=== PATIENT | male | born 1960 | race Hispanic/Latino ===

== ENCOUNTER 2017-12-23 14:46 | Inpatient (IN) | payer OTHER ==
[2017-12-23 16:33] LABS: BASO % 0.5 % (0.0-2.0); EOS % 0.2 % (0.0-4.0); HEMOGLOBIN 15.6 g/dL (12.0-18.0); LYMPH % 26.5 % (20.0-40.0); MEAN CELL VOLUME 88.3 fL (80.0-94.0); MEAN CORPUSCULAR HEMOGLOBIN 29.8 pg (27.0-31.0); MEAN CORPUSCULAR HGB CONC 33.7 g/dL (33.0-37.0); MEAN PLATELET VOLUME 6.7 fL (7.2-11.7); MONO # 0.7 K/uL (0.0-0.8); MONO % 8.9 % (0.0-10.0); NEUT # 4.9 K/uL (1.8-7.0); NEUT % 63.9 % (50.0-75.0); NRBC % 0.1 % (0.0-2.0); RBC 5.25 Mil/uL (4.40-5.90); RED CELL DISTRIBUTION WIDTH 14.7 % (11.5-14.5); WHITE BLOOD COUNT 7.6 K/uL (4.8-10.8)
[2017-12-23 16:50] LABS: ALB/GLOB RATIO 1.6 (1.0-2.1); ALBUMIN 4.8 g/dL (3.5-5.0); ALT/SGPT 51 U/L (21-72); AST/SGOT 58 U/L (17-59); BLOOD UREA NITROGEN 11 mg/dL (9-20); CALCIUM 8.6 mg/dl (8.6-10.4); GFR AFRICAN-AMERICAN > 60; GFR NON-AFRICAN AMERICAN > 60
[2017-12-23 17:16] LABS: URINE BACTERIA OCC (<OCC); URINE BILIRUBIN NEGATIVE (NEGATIVE); URINE CLARITY Clear (Clear); URINE COLOR Straw (YELLOW); URINE GLUCOSE (UA) NORMAL (Normal); URINE LEUKOCYTE ESTERASE NEG Leu/uL (Negative); URINE PROTEIN 2+ mg/dL (NEGATIVE); URINE UROBILINOGEN NORMAL mg/dL (0.2-1.0)
[2017-12-23 17:18] LABS: URINE BLOOD TRACE (NEGATIVE)
[2017-12-23 17:27] LABS: BARBITURATES, UR NEGATIVE (NEGATIVE); BENZODIAZEPINES, UR NEGATIVE (NEGATIVE); OPIATES, UR NEGATIVE (NEGATIVE); PHENCYCLIDINE, UR NEGATIVE (NEGATIVE)
--- NOTE | 2017-12-23 17:58 | C.PDOC ---
History Of Present Illness 57 y/o male presents to the ER requesting detox from alcohol. Patient states that he last drank [employer]. Patient denies having suicidal ideation ,homicidal ideation, and active physical complaints. Time Seen by Provider: 12/23/17 15:32 Chief Complaint (Nursing): Substance Abuse History Per: Patient History/Exam Limitations: no limitations Past Medical History Reviewed: Historical Data, Nursing Documentation, Vital Signs Vital Signs: Last Vital Signs Temp 98 F 12/23/17 15:01 Pulse 66 12/23/17 15:01 Resp 16 12/23/17 15:01 BP 136/66 12/23/17 15:01 Pulse Ox 98 12/23/17 18:31 - Medical History PMH: Depression, HTN Denies: Diabetes, Hepatitis, HIV, Seizures, Sexually Transmitted Disease Surgical History: No Surg Hx - [facility] Procedures ALCOHOL DETOXIFICATION (05/25/13) Family History: States: No Known Family Hx - Social History Hx Tobacco Use: Yes Hx Alcohol Use: Yes Hx Substance Use: No - Immunization History Hx Tetanus Toxoid Vaccination: No Hx Influenza Vaccination: Yes Hx Pneumococcal Vaccination: No Review Of Systems Except As Marked, All Systems Reviewed And Found Negative. Physical Exam - Physical Exam Appears: No Acute Distress Skin: Normal Color, Warm, Dry Head: Atraumatic, Normacephalic Eye(s): bilateral: Normal Inspection Nose: Normal Oral Mucosa: Moist Neck: Supple Chest: Symmetrical Cardiovascular: Rhythm Regular Respiratory: Normal Breath Sounds, No Rales, No Rhonchi, No Wheezing Gastrointestinal/Abdominal: Normal Exam, Soft, No Tenderness, No Guarding, No Rebound Neurological/Psych: Oriented x3, Normal Speech ED Course And Treatment - Laboratory Results Result Diagrams: 12/23/17 16:26 12/23/17 16:26 O2 Sat by Pulse Oximetry: 98 (RA) Pulse Ox Interpretation: Normal Medical Decision Making Medical Decision Making: Assessment: Alcohol Abuse Plan: --Labs --UA --Librium PO Updates: Patient has been medically cleared for Crisis. Patient has been admitted under the service of for alcohol abuse. Disposition Discussed With : Pastor Ndiaye Doctor Will See Patient In The: Hospital Counseled Patient/Family Regarding: Studies Performed, Diagnosis - Disposition Disposition: HOSPITALIZED Disposition Time: 17:58 Condition: FAIR - Clinical Impression Clinical Impression: Alcohol abuse - Scribe Statement The provider has reviewed the documentation as recorded by the Caydenibjcai Melendez Provider Attestation: All medical record entries made by the Caydenibe were at my direction and personally dictated by me. I have reviewed the chart and agree that the record accurately reflects my personal performance of the history, physical exam, medical decision making, and the department course for this patient. I have also personally directed, reviewed, and agree with the discharge instructions and disposition.
--- NOTE | 2017-12-23 18:25 | PCM.BM ---
<Daljit Saleem - Last Filed: 12/23/17 18:24> Treatment Plan Problems - Problems identified on initial assessmt potential for alcohol withdrawal Date Initiated: 12/23/17 Time Initiated: 18:24 Status: Active Treatment assets and liabiliti Patient Assests: cognitively intact Patient Liabilities: substance abuse - Milieu Protocol Maintain good personal hygiene: daily Encourage regular showers, daily Remind patient to perform daily oral care, daily Assist patient to perform ADL's Conduct patient checks and document Observation sheet: Q15 minutes Maintain personal safety: every shift Educate patient to report safety concerns to staff, every shift Monitor environment for contraband/sharps Medication safety: Monitor for expected outcome, potential side effects: every shift, Assess barriers to learning: every shift, Assess readiness for medication education: every shift <Sanjeev Pedraza - Last Filed: 12/24/17 18:58> - Diagnosis (1) Alcohol use disorder, severe, dependence Status: Acute Interventions: 12/24/17 18:58 * Assess 7x/week regarding severity of withdrawal * Educate regarding risks, benefits, side effects and alternatives of medications * Use Motivational Interviewing for abstinence * Use CBT for relapse prevention * Medication management for withdrawal symptoms * Encourage medication assisted treatment
[2017-12-24] MEDS: Metoprolol Succinate 50 mg XL Tab PO SCH (09:06)
[2017-12-24] MEDS: Pantoprazole 40 mg EC Tab PO SCH (09:06)
[2017-12-24] MEDS: Multiple Vitamins Tab PO SCH (09:11)
--- NOTE | 2017-12-24 17:59 | PCM.PSYCH ---
Initial Psychiatric Evaluation - Initial Psychiatric Evaluation Type of Admission: Voluntary Legal Status: Capacity Chief Complaint (in patient's own words): I need help for alcohol use. History of Present Illness and Precipitating Events: Patient is a 57 years old, single, employed, male with history of major depressive disorder was admitted due to withdrawing from alcohol. Reported he has history of depression and is getting medications including Lexapro 20 mg, Abilify 15 mg and Klonopin 1-1/2-2 mg daily prescribed by his psychiatrist. Reported compliant with treatment. According to patient because of work load he relapsed on alcohol. He started drinking alcohol at 14 years of age increased gradually. Currently he was drinking 2 pints of vodka daily. Last drink was yesterday. His longest period of abstinence was 10 months, 6 years ago. History of one previous detox and 2 rehabs. Patient also smoke one pack of cigarettes daily. Patient was born in [place] and has 2 years of college. He is working. Never and has no children. He lives with a roommate. Height is 5 feet 8 inches and weight is 196 pounds. Current Medications: Active Medications Generic Name Dose Route Start Last Admin Trade Name Freq PRN Reason Stop Dose Admin Amlodipine Besylate 5 mg 12/24/17 10:00 12/24/17 09:06 Norvasc PO 5 mg DAILY SANTIAGO Administration Chlordiazepoxide 25 mg 12/23/17 20:20 12/24/17 16:18 Librium PO 25 mg Q4H PRN Administration Alcohol Withdrawal Chlordiazepoxide 25 mg 12/24/17 06:30 12/24/17 17:24 Librium PO 12/28/17 06:28 25 mg Q6 SANTIAGO Administration Taper Clonidine HCl 0.1 mg 12/23/17 20:20 12/24/17 16:57 Catapres PO 0.1 mg Q4H PRN Administration Symptoms of alcohol withdrawl Escitalopram Oxalate 20 mg 12/24/17 10:00 12/24/17 09:06 Lexapro PO 20 mg DAILY SANTIAGO Administration Folic Acid 1 mg 12/24/17 10:00 12/24/17 09:11 Folic Acid PO Not Given DAILY SANTIAGO Ibuprofen 600 mg 12/23/17 20:17 Motrin Tab PO Q6H PRN Pain, moderate (4-7) Metoprolol Succinate 50 mg 12/24/17 10:00 12/24/17 09:06 Toprol Xl PO 50 mg DAILY SANTIAGO Administration Multivitamins 1 tab 12/24/17 10:00 12/24/17 09:11 Hexavitamin PO Not Given DAILY SANTIAGO Nicotine 1 patch 12/24/17 12:00 12/24/17 12:18 Nicoderm Cq TD 1 patch DAILY SANTIAGO Administration Pantoprazole Sodium 40 mg 12/24/17 10:00 12/24/17 09:06 Protonix Ec Tab PO 40 mg DAILY SANTIAGO Administration Rosuvastatin Calcium 10 mg 12/23/17 22:00 12/23/17 21:28 Crestor PO 10 mg HS SANTIAGO Administration Thiamine HCl 100 mg 12/24/17 10:00 12/24/17 09:11 Vitamin B1 Tab PO Not Given DAILY SANTIAGO Trazodone HCl 100 mg 12/23/17 22:00 12/23/17 21:28 Desyrel PO 100 mg HS SANTIAGO Administration Past Psychiatric History - Past Psychiatric History Previous Treatment History: Intensive Outpatient History of Abuse: None reported History of ETOH/Drug Use: See HPI History of Family Illness: None reported Pertinent Medical Hx (Current Medical&Sleep Prob, Allergies): Allergies Allergy/AdvReac Type Severity Reaction Status Date / Time No Known Allergies Allergy Verified 12/23/17 15:03 Atorvastatin [Lipitor] 40 mg PO DAILY 12/23/17 Escitalopram [Lexapro] 20 mg PO DAILY 12/23/17 Metoprolol Succinate 50 mg PO DAILY 12/23/17 Pantoprazole [Protonix] 40 mg PO DAILY 12/23/17 amLODIPine [Norvasc] 5 mg PO DAILY 12/23/17 Hypertension Hypercholesterinemia Review of Systems - Psychiatric Psychiatric: As Per HPI, Depression Mental Status Examination - Personal Presentation Personal Presentation: Looks stated age - Affect Affect: Depressed - Motor Activity Motor Activity: Calm - Reliability in Providing Information Reliability in Providing Information: Fair - Speech Speech: Organized - Mood Mood: Depressed - Formal Thought Process Formal Thought Process: No Impairment - Hallucinations/Delusions Hallucinations: Other (None reported) Delusions: Other - Obsessions/Compulsions Obsessions: None Compulsions: None - Cognitive Functions Orientation: Person, Place, Situation, Time Sensorium: Alert Attention/Concentration: Attentive Abstract Thinking: [place] Estimate of Intelligence: Average Judgement: Intact, as evidence by: Insight regarding need for hospitalization Memory: Recent intact, as evidence by: Ability to recall events of the day, Remote intact, as evidenced by: Ability to recall historical events - Risk Risk: Withdrawal, Diminished functioning - Strength & Assets Inventory Strength & Assets Inventory: Employment status, Cooperative - Limitations Limitations: Other DSM 5 DX - DSM 5 DSM 5 Diagnosis: Alcohol use disorder severe. Major depressive disorder recurrent severe without psychotic features - Recommended/Plan of Treatment Treatment Recommendations and Plan of Treatment: Patient education. Supportive therapy. CBT for relapse prevention. [place] for abstinence. We will start Librium taper for alcohol withdrawal symptoms. Other when necessary medications. Will continue with Lexapro and Abilify. Patient will the get help from social sciences lecturer's to find a place for follow-up care after discharge from the hospital. Projected ELOS: 4-5 days - Smoking Cessation Smoking Cessation Initiated: Yes
--- NOTE | 2017-12-25 09:29 | PCM.PYCHPN ---
Psychiatric Progress Note - Psychiatric Progress Note Patient seen today, length of contact: 15 minutes Patient Chief Complaint: "I'm nervous" Problems Identified/Issues Discussed: Pt was seen and evaluated. Chart reviewed and nurse inpt received. Pt reported he has some shakes and he is feeling nervous. He had no new complaints. He needs more time to stabilize. He is eating sleeping fine. Pt is compliant with medication and denied s/e. Medication Change: Yes (Librium detox) Medical Record Reviewed: Yes Mental Status Examination - Cognitive Function Orientation: Person, Place, Situation, Time Memory: Intact Attention: WNL Concentration: WNL Association: WNL Fund of Knowledge: [facility] Decription of patient's judgement and insights: improving/improving - Mood Mood: Depressed, Anxious - Affect Affect: Constricted, Depressed - Speech Speech: Appropriate - Formal Thought Process Formal Thought Process: No Impairment Psychotic Thoughts and Behaviors: denied - Suicidal Ideation Suicidal Ideation: No Plan: denied - Homicidal Ideation Homicidal Ideation: No Plan: denied Goal/Treatment Plan - Goal/Treatment Plan Need for Continued Stay: Discharge may exacerbated symptoms Progress Toward Problem(s) and Goals/Treatment Plan: Continue medications Support and psychoeducation daily Attend groups and activities daily After care planning by RADHA Estimated Date of D/C: 12/30/17 - Smoking Cessation Smoking Cessation Initiated: Yes
[2017-12-25] MEDS: Multiple Vitamins Tab PO SCH (10:36)
[2017-12-25] MEDS: Pantoprazole 40 mg EC Tab PO SCH (10:36)
[2017-12-25] MEDS: Metoprolol Succinate 50 mg XL Tab PO SCH (10:37)
[2017-12-26] MEDS: Multiple Vitamins Tab PO SCH (09:53)
[2017-12-26] MEDS: Metoprolol Succinate 50 mg XL Tab PO SCH (09:54)
[2017-12-26] MEDS: Pantoprazole 40 mg EC Tab PO SCH (09:54)
--- NOTE | 2017-12-26 15:30 | PCM.PYCHPN ---
Psychiatric Progress Note - Psychiatric Progress Note Patient seen today, length of contact: 15 minutes Patient Chief Complaint: I'm feeling better. Problems Identified/Issues Discussed: Patient seen, chart reviewed, case discussed with the staff. Issues related to illness and treatment were discussed with the patient and staff. Reported compliant with treatment with no adverse affects. Tolerating treatment very well. Risk and benefits of medications were discussed with the patient patient understood and agreed. Reported feeling better. Calm and cooperative, speech soft with good eye contact. Awake alert oriented 3, denied any delusions, any auditory of visual hallucinations, no suicidal ideations or homicidal ideations at the time of evaluation. Aftercare discussed with the patient. Medical Problems: Hypertension Hypercholesterinemia Diagnostic Results: Reviewed DSM 5 Symptoms Update: Improvement with treatment Medication Change: No Medical Record Reviewed: Yes Mental Status Examination - Cognitive Function Orientation: Person, Place, Situation, Time Memory: Intact Attention: WNL Concentration: WNL Association: [facility] Fund of Knowledge: [facility] Decription of patient's judgement and insights: Fair - Mood Mood: Depressed (Much less than before) - Affect Affect: Other (Appropriate) - Speech Speech: Appropriate - Formal Thought Process Formal Thought Process: No Impairment Psychotic Thoughts and Behaviors: None - Suicidal Ideation Suicidal Ideation: No - Homicidal Ideation Homicidal Ideation: No Goal/Treatment Plan - Goal/Treatment Plan Need for Continued Stay: Remain at risks for inpatient hospitalization, Discharge may exacerbated symptoms, Severe functional impairment Progress Toward Problem(s) and Goals/Treatment Plan: Patient education. Supportive therapy. CBT for relapse prevention. [place] for abstinence. Continue treatment as before. Patient will the get help from older adult social work specialist's to find a place for follow-up care after discharge from the hospital. Estimated Date of D/C: 12/30/17 - Smoking Cessation Smoking Cessation Initiated: Yes
[2017-12-27] MEDS: Multiple Vitamins Tab PO SCH (09:40)
[2017-12-27] MEDS: Pantoprazole 40 mg EC Tab PO SCH (09:40)
[2017-12-27] MEDS: Metoprolol Succinate 50 mg XL Tab PO SCH (09:40)
[2017-12-27 16:50] VITALS: RESP 18
--- NOTE | 2017-12-27 20:03 | PCM.PYCHPN ---
Psychiatric Progress Note - Psychiatric Progress Note Patient seen today, length of contact: 15 minutes Patient Chief Complaint: I'm feeling much better. Problems Identified/Issues Discussed: Patient seen, chart reviewed, case discussed with the staff. Issues related to illness and treatment were discussed with the patient and staff. Reported compliant with treatment with no adverse affects. Tolerating treatment very well. Risk and benefits of medications were discussed with the patient patient understood and agreed. Reported feeling much better. Calm and cooperative, speech soft with good eye contact. Awake alert oriented 3, denied any delusions, any auditory of visual hallucinations, no suicidal ideations or homicidal ideations at the time of evaluation. Aftercare discussed with the patient. Medical Problems: Hypertension Hypercholesterinemia Diagnostic Results: Reviewed DSM 5 Symptoms Update: Much improvement with treatment. Medication Change: No Medical Record Reviewed: Yes Mental Status Examination - Cognitive Function Orientation: Person, Place, Situation, Time Memory: Intact Attention: WNL Concentration: WNL Association: WNL Fund of Knowledge: [facility] Decription of patient's judgement and insights: Fair - Mood Mood: Neutral - Affect Affect: Other (Appropriate) - Speech Speech: Appropriate - Formal Thought Process Formal Thought Process: No Impairment Psychotic Thoughts and Behaviors: None - Suicidal Ideation Suicidal Ideation: No - Homicidal Ideation Homicidal Ideation: No Goal/Treatment Plan - Goal/Treatment Plan Need for Continued Stay: Remain at risks for inpatient hospitalization, Discharge may exacerbated symptoms, Severe functional impairment Progress Toward Problem(s) and Goals/Treatment Plan: Patient education. Supportive therapy. CBT for relapse prevention. [facility] for abstinence. Continue treatment as before. Patient will get help from social services aide's to find a place for follow-up care after discharge from the hospital. Estimated Date of D/C: 12/30/17 - Smoking Cessation Smoking Cessation Initiated: Yes
[2017-12-28 06:14] VITALS: O2SAT 97
[2017-12-28] MEDS: Multiple Vitamins Tab PO SCH (09:48)
[2017-12-28] MEDS: Metoprolol Succinate 50 mg XL Tab PO SCH (09:48)
[2017-12-28] MEDS: Pantoprazole 40 mg EC Tab PO SCH (09:48)
[2017-12-28 10:02] VITALS: TEMP 98.6
[2017-12-28 12:57] VITALS: BP 121/75; PULSE 56
--- NOTE | 2017-12-29 18:54 | PCM.PYCHDC ---
Mental Status Examination - Mental Status Examination Orientation: Person, Place, Situation, Time Memory: Intact Mood: Neutral Affect: Other (Appropriate) Speech: Appropriate Attention: WNL Concentration: WNL Association: WNL Fund of Knowledge: WNL Formal Thought Process: No Impairment Description of patient's judgement and insight: Fair Psychotic Thoughts and Behaviors: None Suicidal Ideation: No Current Homicidal Ideation?: No Discharge Summary - Discharge Note Reason for Hospitalization: Alcohol use disorder severe Major depressive disorder recurrent severe without psychotic features Laboratory Data: Reviewed Consultations:: List each consultation separately and include: 1. Reason for request. 2. Findings. 3. Follow-up Summary of Hospital Course include:: 1. Description of specific treatment plan utilized for patients during their course of treatmen. 2. Summarize the time- course for resolution of acute symptoms and/or regressed behaviors. 3. Describe issues identified and worked on during hospitalization. 4. Describe medication utilized. 5. Describe medical problems identified and treated. 6. Reassessment of suicide risk Summary of Hospital Course: Patient is a 57 years old, single, employed, male with history of major depressive disorder was admitted due to withdrawing from alcohol. Reported he has history of depression and is getting medications including Lexapro 20 mg, Abilify 15 mg and Klonopin 1-1/2-2 mg daily prescribed by his psychiatrist. Reported compliant with treatment. According to patient because of work load he relapsed on alcohol. He started drinking alcohol at 14 years of age increased gradually. Currently he was drinking 2 pints of vodka daily. Last drink was yesterday. His longest period of abstinence was 10 months, 6 years ago. History of one previous detox and 2 rehabs. Patient also smoke one pack of cigarettes daily. Patient was born in [place] and has 2 years of college. He is working. Never and has no children. He lives with a roommate. Height is 5 feet 8 inches and weight is 196 pounds. During his stay in the hospital patient was treated with Librium taper for alcohol withdrawal symptoms. Patient was also started or other when necessary medications. Patient also attended groups and other activities on the unit. With the above treatment patient started feeling better. Today patient was stable and had no withdrawal symptoms. Patient was ready for discharge from the hospital today. At the time of evaluation and discharge, patient was awake alert oriented 3, had no delusions, no auditory or visual hallucinations, no suicidal ideations or homicidal ideations. Patient was discharged in a stable condition. Patient will go to [facility] for follow-up care after discharge from the hospital. - Diagnosis (1) Alcohol use disorder, severe, dependence Status: Acute - Final Diagnosis (DSM 5) Condition upon Discharge: FAIR Disposition: HOME/ ROUTINE Follow-up Treatment Plan: Patient will go to [facility] for follow-up care after discharge from the hospital. - Smoking Cessation Smoking Cessation Medication prescribed: Yes - Antipsychotic Medications Pt discharged on 2 or more routine antipsychotic medications: No
== END 2017-12-28 14:33 | disposition home or self-care (01) | DRG 895 ==
LOC: C.ER 14:46 → C.7D 17:57
PROVIDERS: ADMIT Psychiatry & Neurology Psychiatry; ATTEND Psychiatry & Neurology Psychiatry
PROC: HZ2ZZZZ Detoxification Services for Substance Abuse Treatment (ICD-10-PCS; principal; 2017-12-23)
PROC: HZ59ZZZ Individual Psychotherapy for Substance Abuse Treatment, Supportive (ICD-10-PCS; 2017-12-23)
PROC: GZ3ZZZZ Medication Management (ICD-10-PCS; 2017-12-23)
PROC: HZ90ZZZ Pharmacotherapy for Substance Abuse Treatment, Nicotine Replacement (ICD-10-PCS; 2017-12-23)
PROC: GZ56ZZZ Individual Psychotherapy, Supportive (ICD-10-PCS; 2017-12-23)
PROC: GZHZZZZ Group Psychotherapy (ICD-10-PCS; 2017-12-23)
DX: F10.230 Alcohol dependence with withdrawal, uncomplicated (principal); F33.2 Major depressive disorder, recurrent severe without psychotic features; F17.210 Nicotine dependence, cigarettes, uncomplicated; E78.00 Pure hypercholesterolemia, unspecified; I10 Essential (primary) hypertension

== ENCOUNTER 2018-09-08 13:40 | Inpatient (IN) | payer OTHER ==
[2018-09-08 14:05] VITALS: BMI 30.4
[2018-09-08 16:03] LABS: BASO % 0.7 % (0.0-2.0); EOS # 0.2 K/uL (0.0-0.7); EOS % 3.5 % (0.0-4.0); HEMOGLOBIN 16.4 g/dL (12.0-18.0); LYMPH # 2.3 K/uL (1.0-4.3); LYMPH % 38.5 % (20.0-40.0); MEAN CORPUSCULAR HEMOGLOBIN 31.1 pg (27.0-31.0); MEAN PLATELET VOLUME 6.8 fL (7.2-11.7); MONO # 0.5 K/uL (0.0-0.8); MONO % 8.2 % (0.0-10.0); NEUT # 2.9 K/uL (1.8-7.0); NEUT % 49.1 % (50.0-75.0); NRBC % 0.1 % (0.0-2.0); RBC 5.28 Mil/uL (4.40-5.90); RED CELL DISTRIBUTION WIDTH 13.1 % (11.5-14.5); WHITE BLOOD COUNT 5.9 K/uL (4.8-10.8)
[2018-09-08 16:07] LABS: MEAN CELL VOLUME 91.4 fL (80.0-94.0)
[2018-09-08 16:21] LABS: ALB/GLOB RATIO 1.5 (1.0-2.1); ALBUMIN 4.6 g/dL (3.5-5.0); ALT/SGPT 29 U/L (21-72); AST/SGOT 43 U/L (17-59); BLOOD UREA NITROGEN 10 mg/dL (9-20); CALCIUM 9.2 mg/dl (8.6-10.4); GFR NON-AFRICAN AMERICAN > 60
[2018-09-08 16:24] LABS: URINE BILIRUBIN NEGATIVE (NEGATIVE); URINE BLOOD 1+ (NEGATIVE); URINE CLARITY Clear (Clear); URINE COLOR Yellow (YELLOW); URINE GLUCOSE (UA) NORMAL (Normal); URINE LEUKOCYTE ESTERASE NEG Leu/uL (Negative); URINE PROTEIN 2+ mg/dL (NEGATIVE); URINE UROBILINOGEN NORMAL mg/dL (0.2-1.0)
[2018-09-08 16:29] LABS: BARBITURATES, UR NEGATIVE (NEGATIVE); BENZODIAZEPINES, UR NEGATIVE (NEGATIVE); OPIATES, UR NEGATIVE (NEGATIVE); PHENCYCLIDINE, UR NEGATIVE (NEGATIVE)
--- NOTE | 2018-09-08 16:42 | C.PDOC ---
History Of Present Illness 58 year old male with a history of depression presents to the emergency department with complaints of depression. Patient states that for the last several weeks he has been sleeping more, as well as drinking more. Patient states that his last drink was 15 minutes prior to arrival. Patient is currently requesting detox from alcohol. He denies suicidal and homicidal ideation. Patient's neighbor is at bedside with him. Time Seen by Provider: 09/08/18 14:53 Chief Complaint (Nursing): Substance Abuse History Per: Patient History/Exam Limitations: no limitations Onset/Duration Of Symptoms: Other (several weeks) Current Symptoms Are (Timing): Worse Suicide/Self Injury Attempted (Context): None Modifying Factor(s): Alcohol Associated Symptoms: Depression. denies: Suicidal Thoughts, Suicidal Plan Past Medical History Reviewed: Historical Data, Nursing Documentation, Vital Signs Vital Signs: Last Vital Signs Temp 98.6 F 09/08/18 14:04 Pulse 79 09/08/18 14:04 Resp 18 09/08/18 14:04 BP 144/82 09/08/18 14:04 Pulse Ox 97 09/08/18 14:04 - Medical History PMH: Depression, HTN, Hypercholesterolemia Denies: Diabetes, Hepatitis, HIV, Seizures, Sexually Transmitted Disease Surgical History: Coronary Stent (x2 2007) - [facility] Procedures ALCOHOL DETOXIFICATION (05/25/13) DETOXIFICATION SERVICES FOR SUBSTANCE ABUSE TREATMENT (12/23/17) GROUP PSYCHOTHERAPY (12/23/17) INDIV PSYCHOTHERAPY FOR SUBSTANCE ABUSE TREATMENT, SUPPORT (12/23/17) INDIVIDUAL PSYCHOTHERAPY, SUPPORTIVE (12/23/17) MEDICATION MANAGEMENT (12/23/17) PHARMACOTHERAPY FOR SUBSTANCE ABUSE, NICOTINE REPLACE (12/23/17) Family History: States: No Known Family Hx - Social History Hx Tobacco Use: Yes Hx Alcohol Use: Yes (dialy for the last one month) Hx Substance Use: No (Pt denies) - Immunization History Hx Tetanus Toxoid Vaccination: Yes Hx Influenza Vaccination: No Hx Pneumococcal Vaccination: No Review Of Systems Except As Marked, All Systems Reviewed And Found Negative. Constitutional: Negative for: Fever, Chills Cardiovascular: Negative for: Chest Pain Respiratory: Negative for: Cough, Shortness of Breath Gastrointestinal: Negative for: Nausea, Vomiting, Abdominal Pain, Diarrhea Psych: Positive for: Depression. Negative for: Suicidal ideation Physical Exam - Physical Exam Appears: Non-toxic, No Acute Distress Skin: Normal Color, Warm, Dry Head: Atraumatic, Normacephalic Eye(s): bilateral: Normal Inspection, PERRL, EOMI Nose: Normal Oral Mucosa: Moist, Other (alcohol on breath) Neck: Normal, Supple Chest: Symmetrical, No Tenderness Cardiovascular: Rhythm Regular, No Murmur Respiratory: Normal Breath Sounds, No Rales, No Rhonchi, No Wheezing Gastrointestinal/Abdominal: Soft, No Tenderness, No Guarding, No Rebound Extremity: Normal ROM Neurological/Psych: Oriented x3, Normal Speech, Normal Cognition ED Course And Treatment - Laboratory Results Result Diagrams: 09/08/18 15:49 09/08/18 15:49 Lab Results: Total Bilirubin 0.8 mg/dL (0.2-1.3) 09/08/18 15:49 AST 43 U/L (17-59) 09/08/18 15:49 ALT 29 U/L (21-72) 09/08/18 15:49 Alkaline Phosphatase 84 U/L (38-126) 09/08/18 15:49 Total Protein 7.6 g/dL (6.3-8.3) 09/08/18 15:49 Albumin 4.6 g/dL (3.5-5.0) 09/08/18 15:49 Globulin 3.0 gm/dL (2.2-3.9) 09/08/18 15:49 Albumin/Globulin Ratio 1.5 (1.0-2.1) 09/08/18 15:49 Urine Color Yellow (YELLOW) 09/08/18 15:49 Urine Clarity Clear (Clear) 09/08/18 15:49 Urine pH 6.0 (5.0-8.0) 09/08/18 15:49 Ur Specific Lamar 1.009 (1.003-1.030) 09/08/18 15:49 Urine Protein 2+ mg/dL (NEGATIVE) H 09/08/18 15:49 Urine Glucose (UA) Normal mg/dL (Normal) 09/08/18 15:49 Urine Ketones Negative mg/dL (NEGATIVE) 09/08/18 15:49 Urine Blood 1+ (NEGATIVE) H 09/08/18 15:49 Urine Nitrate Negative (NEGATIVE) 09/08/18 15:49 Urine Bilirubin Negative (NEGATIVE) 09/08/18 15:49 Urine Urobilinogen Normal mg/dL (0.2-1.0) 09/08/18 15:49 Ur Leukocyte Esterase Neg Magdy/uL (Negative) 09/08/18 15:49 Urine WBC (Auto) < 1 /hpf (0-5) 09/08/18 15:49 Urine RBC (Auto) < 1 /hpf (0-3) 09/08/18 15:49 O2 Sat by Pulse Oximetry: 97 (RA) Pulse Ox Interpretation: Normal Progress Note: Plan: Labs. Patient is medically cleared to be evaluated by crisis. Disposition - Disposition Disposition: HOSPITALIZED Disposition Time: 17:03 Condition: STABLE Forms: Pixelle (Albanian) - Clinical Impression Clinical Impression: Alcohol use disorder, severe, dependence - PA / VIBRATION ANALYST / Resident Statement MD/DO has reviewed & agrees with the documentation as recorded. - Scribe Statement The provider has reviewed the documentation as recorded by the Scribe (Hernan Aguirre) All medical record entries made by the Scribe were at my direction and personally dictated by me. I have reviewed the chart and agree that the record accurately reflects my personal performance of the history, physical exam, medical decision making, and the department course for this patient. I have also personally directed, reviewed, and agree with the discharge instructions and disposition. Decision To Admit - Pt Status Changed To: Hospital Disposition Of: Inpatient - Admit Certification Admit to Inpatient:: After my assessment, the patient will require hospitalization for at least two midnights. This is because of the severity of symptoms shown, intensity of services needed, and/or the medical risk in this patient being treated as an outpatient. - InPatient: Physician Admission Certification: I certify that this patient requires 2 or more midnights of care for the following reason:: Patient will need more than 2 days of hospitalization - . Bed Request Type: Detox Admitting Physician: Shelia Boyd Patient Diagnosis: Alcohol use disorder, severe, dependence
--- NOTE | 2018-09-08 19:11 | PCM.BM ---
<NikolaiJennifer - Last Filed: 09/08/18 19:09> Treatment Plan Problems - Problems identified on initial assessmt Anxiety Related to Substance Use Date Initiated: 09/08/18 Time Initiated: 19:10 Assessment reference: NA Status: Active Defensive Coping Date Initiated: 09/08/18 Time Initiated: 19:10 Assessment reference: NA Status: Active Knowledge Deficit : Alcohol Use Date Initiated: 09/08/18 Time Initiated: 19:11 Assessment reference: NA Status: Active Treatment assets and liabiliti Patient Assests: ADL independent, negotiates basic needs, cognitively intact Patient Liabilities: substance abuse - Milieu Protocol Maintain good personal hygiene: daily Encourage regular showers, daily Remind patient to perform daily oral care, daily Assist patient to perform ADL's Conduct patient checks and document Observation sheet: Q15 minutes Maintain personal safety: every shift Educate patient to report safety concerns to staff, every shift Monitor environment for contraband/sharps Medication safety: Monitor for expected outcome, potential side effects: every shift, Assess barriers to learning: every shift, Assess readiness for medication education: every shift <Sanjeev Pedraza - Last Filed: 09/11/18 16:59> - Diagnosis (1) Alcohol use disorder, severe, dependence Status: Acute Interventions: 09/11/18 16:59 * Assess/adjust medications daily and /or as needed * See patient on an individual basis 7x/week to assess symptoms of depression * Monitor for side effects & effectiveness of medications (2) Major depressive disorder, recurrent severe without psychotic features Status: Acute Interventions: 09/11/18 17:00 * Assess 7x/week regarding severity of withdrawal * Educate regarding risks, benefits, side effects and alternatives of medications * Use Motivational Interviewing for abstinence * Use CBT for relapse prevention * Medication management for withdrawal symptoms * Encourage medication assisted treatment <Mami Alvarado - Last Filed: 09/12/18 08:26> Family Contact Family involvement: Famliy/SO not involved - Goals for Treatment Patient goals for treatment: COMPLETE DETOX AND APPLY FOR LONG-TERM INPATIENT REHAB IN [place]. Discharge/Continuing Care - Education Needs Education Needs: Patient Medication, Patient Diagnosis/Disease Process, Patient Coping Skills, Patient Anger Management skills, Patient Placement options, Patient Community resources - Discharge Discharge Criteria: No longer exhibiting s/s of withdrawal, Reduction of target symptoms Discharge to:: Substance Abuse Rehab - Treatment Team Participation Patient/Family/SO Statement: 09/12/18 08:26 "I'M GONNA GO TO REHAB IN [place]..." Discussed with Family/SO: No Was Patient/Family/SO present at Treatment Team Meeting: Yes
[2018-09-09] MEDS: Multiple Vitamins Tab PO SCH (10:29)
--- NOTE | 2018-09-09 19:27 | PCM.PSYCH ---
Initial Psychiatric Evaluation - Initial Psychiatric Evaluation Type of Admission: Voluntary Legal Status: Capacity Chief Complaint (in patient's own words): I need help for my alcohol use. History of Present Illness and Precipitating Events: Patient is a 58 years old, single, employed, male with history of major depressive disorder, currently unemployed with medications for last 7-8 months, was admitted due to withdrawing from alcohol and depression. Alcohol: Started drinking alcohol 15 years ago, increased gradually. Currently he was drinking half bottle of vodka daily. His longest period of abstinence was one and 1/2-year 5 years ago. Patient has history of 3 detox and to rehabs in the past. Reported having shaking and also drinking in the morning to open his eyes. Patient was attending AA meetings in the past. Patient has no sponsor. Patient reported history of depression for last many years, not taking any medication for the last 7-8 months as no medication was helping him. He was seeing a psychiatrist off and on. He was last seen by a psychiatrist 1 year ago. Patient was born in [place], has 3 years of college education. Working. Never and has no children. Patient lives with a roommate. His height is 5 feet 8 inches and weight is 200 pounds. Current Medications: Active Medications Generic Name Dose Route Start Last Admin Trade Name Freq PRN Reason Stop Dose Admin Chlordiazepoxide 25 mg 09/08/18 19:03 09/09/18 15:49 Librium PO 25 mg Q4 PRN Administration alcohol withdrawal symptoms Chlordiazepoxide 25 mg 09/09/18 12:00 09/09/18 17:28 Librium PO 09/13/18 11:59 25 mg Q6 SANTIAGO Administration Taper Clonidine HCl 0.1 mg 09/08/18 19:04 09/09/18 06:55 Catapres PO 0.1 mg Q6 PRN Administration withdrawal symptoms Fluoxetine HCl 10 mg 09/09/18 15:30 09/09/18 15:49 Prozac PO 10 mg DAILY SANTIAGO Administration Folic Acid 1 mg 09/09/18 10:00 09/09/18 10:29 Folic Acid PO 1 mg DAILY SANTIAGO Administration Gabapentin 400 mg 09/09/18 18:00 09/09/18 17:28 Neurontin PO 400 mg TID SANTIAGO Administration Hydroxyzine HCl 25 mg 09/08/18 19:13 09/08/18 19:20 Atarax PO 25 mg Q6 PRN Administration Anxiety Ibuprofen 400 mg 09/09/18 15:21 Motrin Tab PO Q6 PRN Pain, moderate (4-7) Multivitamins 1 tab 09/09/18 10:00 09/09/18 10:29 Hexavitamin PO 1 tab DAILY SANTIAGO Administration Nicotine 1 patch 09/09/18 10:00 09/09/18 10:29 Nicoderm Cq TD 1 patch DAILY SANTIAGO Administration Olanzapine 5 mg 09/09/18 22:00 Zyprexa PO HS SANTIAGO Thiamine HCl 100 mg 09/09/18 10:00 09/09/18 10:29 Vitamin B1 Tab PO 100 mg DAILY SANTIAGO Administration Trazodone HCl 50 mg 09/08/18 19:13 Desyrel PO HS PRN Insomnia Past Psychiatric History - Past Psychiatric History Previous Treatment History: Inpatient Explanation of prior treatment: 3 previous detox and 3 rehabs History of Abuse: None reported History of ETOH/Drug Use: See HPI History of Family Illness: None reported Pertinent Medical Hx (Current Medical&Sleep Prob, Allergies): Allergies Allergy/AdvReac Type Severity Reaction Status Date / Time No Known Allergies Allergy Verified 09/08/18 14:04 Atorvastatin [Lipitor] 40 mg PO DAILY 12/23/17 Metoprolol Succinate 50 mg PO DAILY 12/23/17 amLODIPine [Norvasc] 5 mg PO DAILY 12/23/17 Aspirin [Ecotrin] 81 mg PO DAILY 09/08/18 Clonazepam 0.5 mg PO TID 09/08/18 (Hypertension Coronary artery disease(2 stents) Review of Systems - Psychiatric Psychiatric: As Per HPI, Anhedonia, Depression Mental Status Examination - Personal Presentation Personal Presentation: Looks stated age - Affect Affect: Depressed - Motor Activity Motor Activity: Calm - Reliability in Providing Information Reliability in Providing Information: Fair - Speech Speech: Organized - Mood Mood: Depressed - Formal Thought Process Formal Thought Process: No Impairment - Hallucinations/Delusions Hallucinations: Other (None reported) Delusions: Other - Obsessions/Compulsions Obsessions: None Compulsions: None - Cognitive Functions Orientation: Person, Place, Situation, Time Sensorium: Alert Attention/Concentration: Attentive Abstract Thinking: [place] Estimate of Intelligence: Average Judgement: Intact, as evidence by: Insight regarding need for hospitalization Memory: Recent intact, as evidence by: Ability to recall events of the day, Remote intact, as evidenced by: Ability to recall historical events - Risk Risk: Withdrawal, Diminished functioning - Strength & Assets Inventory Strength & Assets Inventory: Employment status, Cooperative - Limitations Limitations: Other (Lives with a roommate) DSM 5 DX - DSM 5 DSM 5 Diagnosis: Alcohol withdrawal Alcohol use disorder severe Major depressive disorder recurrent severe without psychotic features - Recommended/Plan of Treatment Treatment Recommendations and Plan of Treatment: Patient education. Supportive therapy. CBT for relapse prevention. [place] for abstinence. Will start Librium taper for alcohol withdrawal symptoms. Other PRN medications. Will start Prozac 10 mg daily and also will start Zyprexa 5 mg at bedtime. Projected ELOS: 4-5 days Discharge Plan and Discharge Criteria: No depression. Minimal or no withdrawal symptoms - Smoking Cessation Smoking Cessation Initiated: Yes
[2018-09-10] MEDS: Multiple Vitamins Tab PO SCH (09:28)
--- NOTE | 2018-09-10 17:16 | PCM.PYCHPN ---
Psychiatric Progress Note - Psychiatric Progress Note Patient seen today, length of contact: 15 minutes Patient Chief Complaint: I am feeling little better. Problems Identified/Issues Discussed: Patient seen, chart reviewed, case discussed with the staff. Issues related to illness and treatment were discussed with the patient and staff. Reported compliance with treatment with no adverse effect. Tolerating treatment very well. Patient reported feeling little better, still has some withdrawal symptoms including body aches, abdominal cramps, nausea, decreased sleep and headache. Mood reported as anxious. Affect appropriate. Aftercare discussed with the patient. Patient denied any delusions, auditory or visual hallucinations, no suicidal ideations or homicidal ideations at the time of the evaluation. Medical Problems: None reported Diagnostic Results: Reviewed DSM 5 Symptoms Update: Some improvement with treatment. Medication Change: No Medical Record Reviewed: Yes Mental Status Examination - Cognitive Function Orientation: Person, Place, Situation, Time Memory: Intact Attention: WNL Concentration: WNL Association: [facility] Fund of Knowledge: [facility] Decription of patient's judgement and insights: Fair - Mood Mood: Anxious - Affect Affect: Other (Appropriate) - Speech Speech: Appropriate - Formal Thought Process Formal Thought Process: No Impairment Psychotic Thoughts and Behaviors: None - Suicidal Ideation Suicidal Ideation: No - Homicidal Ideation Homicidal Ideation: No Goal/Treatment Plan - Goal/Treatment Plan Need for Continued Stay: Remain at risks for inpatient hospitalization, Discharge may exacerbated symptoms, Severe functional impairment Progress Toward Problem(s) and Goals/Treatment Plan: Some improvement with treatment. Patient education. Supportive therapy. CBT for relapse prevention. Pia for abstinence. Continue treatment as before. Estimated Date of D/C: 09/12/18 - Smoking Cessation Smoking Cessation Initiated: Yes
[2018-09-10] MEDS ORDERED: Aluminum Hydroxide/Magnesium Hydroxide Susp (30 mL) PO ONE (23:41)
[2018-09-11] MEDS: Multiple Vitamins Tab PO SCH (09:10)
--- NOTE | 2018-09-11 17:03 | PCM.PYCHPN ---
Psychiatric Progress Note - Psychiatric Progress Note Patient seen today, length of contact: 15 minutes Patient Chief Complaint: I am still feeling anxious. Problems Identified/Issues Discussed: Patient seen, chart reviewed, case discussed with the staff. Issues related to illness and treatment were discussed with the patient and staff. Reported compliance with treatment with no adverse effect. Tolerating treatment very well. Patient reported feeling little better, still has some withdrawal symptoms including body aches, abdominal cramps, nausea, decreased sleep and headache. Mood reported as anxious. Affect appropriate. Aftercare discussed with the patient. Patient denied any delusions, auditory or visual hallucinations, no suicidal ideations or homicidal ideations at the time of the evaluation. Medical Problems: None reported Diagnostic Results: Reviewed DSM 5 Symptoms Update: Some improvement with treatment. Medication Change: No Medical Record Reviewed: Yes Mental Status Examination - Cognitive Function Orientation: Person, Place, Situation, Time Memory: Intact Attention: WNL Concentration: WNL Association: [facility] Fund of Knowledge: [facility] Decription of patient's judgement and insights: Fine - Mood Mood: Anxious (Less than before) - Affect Affect: Other (Appropriate) - Speech Speech: Appropriate - Formal Thought Process Formal Thought Process: No Impairment Psychotic Thoughts and Behaviors: None - Suicidal Ideation Suicidal Ideation: No - Homicidal Ideation Homicidal Ideation: No Goal/Treatment Plan - Goal/Treatment Plan Need for Continued Stay: Remain at risks for inpatient hospitalization, Discharge may exacerbated symptoms, Severe functional impairment Progress Toward Problem(s) and Goals/Treatment Plan: Patient education. Supportive therapy. CBT for relapse prevention. [place] for abstinence. Continue treatment as before. Estimated Date of D/C: 09/12/18 - Smoking Cessation Smoking Cessation Initiated: Yes
[2018-09-12 06:08] VITALS: O2SAT 95
[2018-09-12] MEDS: Multiple Vitamins Tab PO SCH (09:18)
[2018-09-12 09:29] VITALS: BP 140/80; PULSE 67; RESP 18; TEMP 97.6
--- NOTE | 2018-09-13 12:30 | PCM.PYCHDC ---
Mental Status Examination - Mental Status Examination Orientation: Person, Place, Situation, Time Memory: Intact Mood: Neutral Affect: Other ( Appropriate) Attention: WNL Concentration: WNL Association: WNL Fund of Knowledge: WNL Formal Thought Process: No Impairment Description of patient's judgement and insight: Fine Psychotic Thoughts and Behaviors: None Suicidal Ideation: No Current Homicidal Ideation?: No Discharge Summary - Discharge Note Reason for Hospitalization: Alcohol withdrawal Alcohol use disorder severe Major depressive disorder recurrent severe without psychotic features Laboratory Data: Reviewed Consultations:: List each consultation separately and include: 1. Reason for request. 2. Findings. 3. Follow-up Summary of Hospital Course include:: 1. Description of specific treatment plan utilized for patients during their course of treatmen. 2. Summarize the time- course for resolution of acute symptoms and/or regressed behaviors. 3. Describe issues identified and worked on during hospitalization. 4. Describe medication utilized. 5. Describe medical problems identified and treated. 6. Reassessment of suicide risk Summary of Hospital Course: Patient is a 58 years old, single, employed, male with history of major depressive disorder, currently unemployed with medications for last 7-8 months, was admitted due to withdrawing from alcohol and depression. Alcohol: Started drinking alcohol 15 years ago, increased gradually. Currently he was drinking half bottle of vodka daily. His longest period of abstinence was one and 1/2-year 5 years ago. Patient has history of 3 detox and to rehabs in the past. Reported having shaking and also drinking in the morning to open his eyes. Patient was attending AA meetings in the past. Patient has no sponsor. Patient reported history of depression for last many years, not taking any medication for the last 7-8 months as no medication was helping him. He was seeing a psychiatrist off and on. He was last seen by a psychiatrist 1 year ago. Patient was born in [place], has 3 years of college education. Working. Never and has no children. Patient lives with a roommate. His height is 5 feet 8 inches and weight is 200 pounds. During his stay in the hospital patient was treated with Librium taper for alcohol withdrawal symptoms. He was also started on other PRN medications. Patient was attending groups and other activities on the unit. With above treatment patient started feeling better. Today patient was stable, had no withdrawal symptoms and was ready to discharge from the hospital. At the time of evaluation and discharge, patient was awake, alert and oriented x3, had no delusions, no auditory or visual hallucinations, no suicidal ideations or homicidal ideations at the time of evaluation. Patient was discharged in a stable condition. - Diagnosis (1) Alcohol use disorder, severe, dependence Status: Acute (2) Major depressive disorder, recurrent severe without psychotic features Status: Acute - Final Diagnosis (DSM 5) Condition upon Discharge: STABLE Disposition: HOME/ ROUTINE Prescriptions/Medication Reconciliation: FLUoxetine [Prozac] 10 mg PO DAILY #30 cap Gabapentin [Neurontin] 400 mg PO TID #90 cap traZODone [Desyrel] 50 mg PO HS PRN #30 tab PRN Reason: Insomnia - Smoking Cessation Smoking Cessation Medication prescribed: No - Antipsychotic Medications Pt discharged on 2 or more routine antipsychotic medications: No
== END 2018-09-12 12:00 | disposition home or self-care (01) | DRG 895 ==
LOC: C.ER 13:40 → C.7D 17:31
PROVIDERS: ADMIT Psychiatry & Neurology Psychiatry; ATTEND Psychiatry & Neurology Psychiatry
PROC: HZ52ZZZ Individual Psychotherapy for Substance Abuse Treatment, Cognitive-Behavioral (ICD-10-PCS; principal; 2018-09-08)
PROC: HZ2ZZZZ Detoxification Services for Substance Abuse Treatment (ICD-10-PCS; 2018-09-08)
PROC: HZ59ZZZ Individual Psychotherapy for Substance Abuse Treatment, Supportive (ICD-10-PCS; 2018-09-08)
PROC: HZ56ZZZ Individual Psychotherapy for Substance Abuse Treatment, Psychoeducation (ICD-10-PCS; 2018-09-08)
PROC: HZ42ZZZ Group Counseling for Substance Abuse Treatment, Cognitive-Behavioral (ICD-10-PCS; 2018-09-08)
PROC: HZ46ZZZ Group Counseling for Substance Abuse Treatment, Psychoeducation (ICD-10-PCS; 2018-09-08)
PROC: GZHZZZZ Group Psychotherapy (ICD-10-PCS; 2018-09-08)
PROC: GZ58ZZZ Individual Psychotherapy, Cognitive-Behavioral (ICD-10-PCS; 2018-09-08)
PROC: GZ56ZZZ Individual Psychotherapy, Supportive (ICD-10-PCS; 2018-09-08)
DX: F10.230 Alcohol dependence with withdrawal, uncomplicated (principal); F33.2 Major depressive disorder, recurrent severe without psychotic features; I10 Essential (primary) hypertension; E78.00 Pure hypercholesterolemia, unspecified; G47.00 Insomnia, unspecified; I25.10 Atherosclerotic heart disease of native coronary artery without angina pectoris; Z95.5 Presence of coronary angioplasty implant and graft